=== PATIENT | female | born 1995 | race Caucasian/White ===

== ENCOUNTER → 2022-04-01 | Outpatient (CLI) | payer BC ==
--- NOTE | 2022-04-01 16:14 | Diagnostic Imaging Report ---
PROCEDURE: US Thyroid. TECHNIQUE: Multiple Real-time grayscale images were obtained of the thyroid in various projections. INDICATION: Abnormal thyroid lab studies. COMPARISON: None. FINDINGS: Right thyroid lobe: Size (cm): 4.7 x 1.4 x 1.4 Echotexture: Normal Vascularity: Normal Nodules: In the superior right thyroid, there is a part cystic/part solid nodule measuring up to 5 mm. In the inferior right thyroid, there is a predominantly solid circumscribed hypoechoic nodule measuring 1 cm in size. Isthmus: Size (cm): 0.2 Nodules: None Left thyroid lobe: Size (cm): 3.6 x 1.5 x 0.7 Echotexture: Normal Vascularity: Normal Nodules: In the superior left thyroid, there is an ill-defined hypoechoic solid nodule measuring 4 mm. IMPRESSION: Bilateral thyroid nodules with a TI-RADS 4 nodule in the inferior right lobe qualifying for followup ultrasound in 1 year. Dictated by: Dictated on workstation # [id number]
== END ==
LOC: RAD 14:34
PROVIDERS: ATTEND Family Medicine
DX: E04.2 Nontoxic multinodular goiter (principal)
CPT/HCPCS: 76536